=== PATIENT | male | born 1955 | race Caucasian/White ===

== ENCOUNTER 2022-05-29 09:39 | Day surgery (SDC) | payer MEDICARE, BC ==
--- NOTE | 2022-05-29 08:33 | HP ---
DATE OF SURGERY: 05/29/2022 HISTORY OF PRESENT ILLNESS: The patient is a 66-year-old last colonoscopy ten years ago. No new bloody stools. No change in bowel movements. No abdominal pain. Family history negative for colon cancer. The patient is in need of screening colonoscopy. PAST MEDICAL HISTORY: He denies any chronic illnesses. PAST SURGICAL HISTORY: Colonoscopy. Tonsillectomy and adenoidectomy in the past. MEDICATIONS: None on a regular basis. ALLERGIES: CODEINE. FAMILY HISTORY: Hypertension. Negative for colon cancer. SOCIAL HISTORY: No smoking. Occasional alcohol use. REVIEW OF SYSTEMS: Fourteen systems reviewed. No chest pain or palpitations. Other systems negative or noncontributory as above and per preadmission questionnaire. PHYSICAL EXAMINATION: Height 5' 11", weight 185 pounds. BMI 25.8. GENERAL: No acute distress. HEENT: Sclerae nonicteric. NECK: No JVD. CHEST: Equal excursion, nonlabored breathing. CVS: Regular rate and rhythm. ABDOMEN: Soft. No peritoneal signs. EXTREMITIES: No significant edema. NEURO: Alert, oriented, moving extremities symmetrically. RECTAL: Deferred timed to endoscopy exam. PSYCH: Appropriate mood and affect. SKIN: Dry. IMPRESSION: Last colonoscopy ten years ago. He is in need of follow up screening colonoscopy. I feel he is a candidate shown the risk sheet explained the procedure in detail including but not limited to bleeding or infection, risk of bowel injury or perforation, risk of missed or nondiagnosis or incomplete exam possibly requiring barium enema, other studies or procedures, general risk of anesthesia or sedation, risk of bowel prep but not limited to, consent obtained. Will proceed with outpatient follow up screening colonoscopy.
[2022-05-29] MEDS ORDERED: Lactated Ringers 1,000 ML IV ONE (09:52)
[2022-05-29] MEDS ORDERED: Lactated Ringers 1,000 ML IV SCH (10:00)
[2022-05-29] MEDS ORDERED: DIPRIVAN 200 MG/20 ML IV ONE ×2 (12:19→12:33)
[2022-05-29] MEDS ORDERED: Versed 2 MG/2 ML Injection ONE (12:19)
[2022-05-29] MEDS ORDERED: Xylocaine-Mpf 2% 5 Ml Vial ONE (12:19)
[2022-05-29 13:45] VITALS: BP 128/95; PULSE 79; O2SAT 95
--- NOTE | 2022-05-29 14:23 | OP ---
SURGERY DATE/TIME: 05/29/2022 1223 PREOPERATIVE DIAGNOSIS: Need for screening colonoscopy. POSTOPERATIVE DIAGNOSES: 1) Left colon diverticulosis. 2) Polyps ascending colon and transverse colon. 3) Fair bowel prep. 4) ASA Class I. 5) Withdrawal time approximately nine minutes. PROCEDURES: 1) Colonoscopy. 2) Hot biopsy polypectomy ascending colon polyp. 3) Hot snare polypectomy transverse colon polyp. SURGEON: Dr. Carlos Multani. ANESTHESIA: MAC. ESTIMATED BLOOD LOSS: Minimal. INDICATIONS: As noted above. Risks and benefits explained in detail but not limited to and consent obtained. DESCRIPTION OF PROCEDURE AND FINDINGS: The patient is taken to the endoscopy room. MAC anesthesia induced. After official time out and no disagreement with planned procedure, digital rectal exam did not reveal any rectal masses. Video colonoscope inserted and passed up through the tortuous sigmoid, descending, transverse and ascending colon. With external pressure the scope was passed to the cecum. Appendiceal orifice and ileocecal valve well visualized and photo documented. Prep is on the fair. A lot of liquidy stool just slightly limiting the exam for very small lesions. ASA Class I. The scope is carefully withdrawn over the next nine minutes. There was a 2 mm looks like early adenomatous polyp biopsied removed with hot biopsy polypectomy in the ascending colon this was on the back side of the fold. Good hemostasis noted. The scope is slowly and carefully withdrawn. Again, diverticulosis left colon. In the left colon diverticulosis there was a 3.5 to 4 mm pedunculated polyp removed from transverse colon with hot snare polypectomy transverse colon polyp. It was retrieved per the staff. The scope is carefully withdrawn again. Diverticulosis left colon. The scope is pulled back. No signs of any other large polyps, masses or obstructing lesions. The scope is withdrawn.
== END 2022-05-29 13:55 | disposition home or self-care (01) ==
LOC: SDC 09:39
PROVIDERS: ATTEND Surgery
DX: Z12.11 Encounter for screening for malignant neoplasm of colon (principal); K57.30 Diverticulosis of large intestine without perforation or abscess without bleeding; D12.4 Benign neoplasm of descending colon; D12.3 Benign neoplasm of transverse colon
CPT/HCPCS: J2250; J2704